=== PATIENT | female | born 1990 | race Caucasian/White ===

== ENCOUNTER 2022-12-28 16:20 | Inpatient (IN) ==
[2022-12-28] MEDS ORDERED: IOPAMIDOL 100 ML BOTTLE IV ONE (16:21)
[2022-12-28] MEDS ORDERED: AZITHROMYCIN 500 MG in DEXTROSE 5% IN WATER 250 ML IV ONE (17:31)
[2022-12-28] MEDS ORDERED: IPRATROPIUM/ALBUTEROL 3 ML AMPUL.NEB NEB ONE (17:34)
[2022-12-28] MEDS ORDERED: MAGNESIUM SULFATE 8.12 MEQ/2 ML VIAL IV ONE (17:35)
[2022-12-28 17:39] LABS: POC Calcium, Ionized 1.02 (1.16-1.32); POC Creatinine 0.7 (0.6-1.2)
[2022-12-28] MEDS ORDERED: cefTRIAXone 1 GM in DEXTROSE 5% IN WATER 50 ML IV SCH (17:45)
[2022-12-28 18:13] LABS: Hematocrit 43.1 % (34.1-44.9); Hemoglobin 14.7 g/dL (11.2-15.7); Mean Cell Volume 83.5 fL (80.0-100.0); Mean Corpuscular HGB Conc 34.1 g/dL (31.0-36.0); Mean Platelet Volume 12.2 fL (8.8-12.5); Platelet Count 403 K/mcL (140-440); RBC 5.16 M/mcL (3.59-5.38); Red Cell Distribution Width 13.5 % (11.5-14.5); WBC 17.4 K/mcL (4.5-11.0)
[2022-12-28 18:32] LABS: Creatine Kinase 64 U/L (24-170)
[2022-12-28] MEDS ORDERED: ACETAMINOPHEN 500 MG TABLET PO ONE (18:35)
[2022-12-28 19:08] LABS: Basophils % (Manual) 1 % (0-2); Eosinophils % (Manual) 2 % (0-7); Lymphocytes % 16 % (15-49); Monocytes % (Manual) 4 % (1-12); Platelet Estimate NORMAL (Normal); RBC Morphology NORMAL (Normal); Segmented Neutrophils % 77 % (38-78)
[2022-12-28] MEDS ORDERED: ALBUTEROL SULFATE 2.5 MG/3 ML NEBULIZER NEB ONE (19:30)
[2022-12-28] MEDS ORDERED: methylPREDNISolone SOD SUCC 125 MG/2 ML VIAL IV ONE (19:35)
[2022-12-28] MEDS ORDERED: BUDESONIDE 0.5 MG/2 ML AMPUL.NEB NEB ONE (19:48)
[2022-12-28 19:54] LABS: HCG,Serum Negative
[2022-12-28] MEDS ORDERED: ALBUTEROL SULFATE 2.5 MG/3 ML NEBULIZER ONE (22:20)
[2022-12-28] MEDS ORDERED: 0.9 % SODIUM CHLORIDE 1,000 ML IV SCH (23:14)
[2022-12-28] MEDS ORDERED: MAGNESIUM SULFATE 2 GM/50 ML BAG IV PRN (23:14)
[2022-12-28] MEDS ORDERED: ONDANSETRON 4 MG/2 ML VIAL IV PRN (23:14)
[2022-12-28] MEDS ORDERED: POTASSIUM CHLORIDE 20 MEQ TABLET PO PRN ×2 (23:14)
[2022-12-28] MEDS ORDERED: AZITHROMYCIN 500 MG in DEXTROSE 5% IN WATER 250 ML IV SCH (23:14)
[2022-12-28] MEDS ORDERED: IPRATROPIUM/ALBUTEROL 3 ML AMPUL.NEB NEB PRN (23:14)
[2022-12-28] MEDS ORDERED: POTASSIUM CHLORIDE 40 MEQ in DEXTROSE 5% IN WATER 500 ML IV PRN (23:14)
[2022-12-28] MEDS ORDERED: POLYETHYLENE GLYCOL 3350 17 GM PACKET PO PRN (23:14)
[2022-12-28] MEDS ORDERED: cefTRIAXone 1 GM VIAL IV SCH (23:14)
[2022-12-28] MEDS ORDERED: POTASSIUM CHLORIDE 20 MEQ TABLET PO ONE ×2 (23:14→23:21)
[2022-12-28] MEDS: IPRATROPIUM/ALBUTEROL 3 ML AMPUL.NEB NEB SCH (23:17)
[2022-12-29] MEDS: methylPREDNISolone SOD SUCC 125 MG/2 ML VIAL IV SCH ×4 (01:45→22:07)
[2022-12-29] MEDS ORDERED: IPRATROPIUM/ALBUTEROL 3 ML AMPUL.NEB NEB ONE (02:13)
[2022-12-29] MEDS: IPRATROPIUM/ALBUTEROL 3 ML AMPUL.NEB NEB SCH ×6 (02:18→22:59)
[2022-12-29] MEDS ORDERED: HYDROmorphone 0.5 MG/0.5 ML SYRINGE ONE ×2 (04:37→07:05)
[2022-12-29] MEDS: HYDROmorphone 0.5 MG/0.5 ML SYRINGE IV PRN ×7 (04:40→21:46)
[2022-12-29 04:44] LABS: Basophils # (Auto) 0.02 K/mcL (0.00-0.30); Basophils % (Auto) 0.2 % (0.0-2.0); Eosinophils # (Auto) 0 K/mcL (0.00-0.70); Eosinophils % (Auto) 0 % (0.0-7.0); Hematocrit 41.4 % (34.1-44.9); Hemoglobin 13.9 g/dL (11.2-15.7); Lymphocytes # (Auto) 0.91 K/mcL (1.50-4.80); Mean Cell Volume 85.4 fL (80.0-100.0); Mean Corpuscular HGB Conc 33.6 g/dL (31.0-36.0); Mean Platelet Volume 11.8 fL (8.8-12.5); Monocytes # (Auto) 0.26 K/mcL (0.10-0.90); Neutrophils % (Auto) 90.1 % (38.0-78.0); Platelet Count 374 K/mcL (140-440); RBC 4.85 M/mcL (3.59-5.38); Red Cell Distribution Width 13.7 % (11.5-14.5); WBC 13.1 K/mcL (4.5-11.0)
[2022-12-29 05:12] LABS: ALT/SGPT 15 U/L (<40); AST/SGOT 17 U/L (<32); Albumin 3.1 gm/dL (3.2-5.2); Albumin/Globulin Ratio 0.7 (1.0-2.3); Alkaline Phosphatase 89 U/L (39-117); Bilirubin,Direct < 0.2 mg/dL (0-0.3); Bilirubin,Total 0.3 mg/dL (0.1-1.0); Blood Urea Nitrogen 6 mg/dL (6-20); Calcium 9.2 mg/dL (8.6-10.4); Carbon Dioxide 27 mmol/L (22-30); Chloride 90 mmol/L (96-108); Globulin 4.4 gm/dL (2.2-3.7); Glomerular Filtration Rate 114; Glucose 167 mg/dL (70-105); Lactate Dehydrogenase 255 U/L (135-225); Phosphorous 3.3 mg/dL (2.5-4.5); Triglycerides 84 mg/dL (<150); Uric Acid 5.7 mg/dL (2.5-8.0)
[2022-12-29] MEDS ORDERED: POTASSIUM CHLORIDE 20 MEQ TABLET PO ONE (05:30)
[2022-12-29] MEDS ORDERED: POTASSIUM CHLORIDE 20 MEQ/10 ML VIAL IV ONE (05:31)
[2022-12-29] MEDS ORDERED: methylPREDNISolone SOD SUCC 125 MG/2 ML VIAL ONE (05:31)
[2022-12-29] MEDS ORDERED: ALBUTEROL SULFATE 2.5 MG/3 ML NEBULIZER ONE (06:25)
[2022-12-29] MEDS: BUDESONIDE 0.5 MG/2 ML AMPUL.NEB NEB SCH ×2 (06:37→22:59)
[2022-12-29] MEDS ORDERED: LIDOCAINE 5% OINT TUBE 35GM TOPICAL PRN (07:23)
[2022-12-29] MEDS: OMEPRAZOLE 20 MG CAPSULE PO SCH (10:07)
[2022-12-29] MEDS: ESCITALOPRAM 20 MG TABLET PO SCH (10:07)
[2022-12-29] MEDS: levETIRAcetam 500 MG TABLET PO SCH ×2 (10:07→21:24)
[2022-12-29] MEDS: clonazePAM 1 MG TABLET PO SCH ×2 (10:07→21:25)
[2022-12-29] MEDS: cefTRIAXone 1 GM VIAL IV SCH (10:08)
[2022-12-29] MEDS: ENOXAPARIN 40 MG/0.4 ML SYRINGE SQ SCH (10:08)
[2022-12-29] MEDS: FLUTICASONE PROPION SALMETEROL INH SCH ×2 (10:53→21:25)
[2022-12-29] MEDS: NICOTINE 21 MG PATCH TOPICAL SCH (10:53)
[2022-12-29] MEDS: AZITHROMYCIN 500 MG in DEXTROSE 5% IN WATER 250 ML IV SCH (11:36)
[2022-12-29] MEDS: SENNOSIDES 1 TABLET PO PRN (21:22)
[2022-12-29] MEDS: NORTRIPTYLINE 25 MG CAPSULE PO SCH (21:22)
[2022-12-29] MEDS: cloNIDine HCL 0.1 MG TABLET PO SCH (21:23)
[2022-12-29] MEDS: ZOLPIDEM 5 MG TABLET PO PRN (21:46)
[2022-12-30] MEDS: IPRATROPIUM/ALBUTEROL 3 ML AMPUL.NEB NEB SCH ×5 (03:09→18:19)
[2022-12-30] MEDS: methylPREDNISolone SOD SUCC 125 MG/2 ML VIAL IV SCH (05:21)
[2022-12-30] MEDS: BUDESONIDE 0.5 MG/2 ML AMPUL.NEB NEB SCH ×2 (07:10→22:09)
[2022-12-30] MEDS: HYDROmorphone 0.5 MG/0.5 ML SYRINGE IV PRN ×4 (07:47→21:10)
[2022-12-30] MEDS: OMEPRAZOLE 20 MG CAPSULE PO SCH (07:47)
[2022-12-30 08:14] LABS: Basophils # (Auto) 0.03 K/mcL (0.00-0.30); Basophils % (Auto) 0.2 % (0.0-2.0); Eosinophils # (Auto) 0 K/mcL (0.00-0.70); Eosinophils % (Auto) 0 % (0.0-7.0); Hematocrit 41.6 % (34.1-44.9); Hemoglobin 13.4 g/dL (11.2-15.7); Lymphocytes # (Auto) 1.44 K/mcL (1.50-4.80); Lymphocytes % (Auto) 8.7 % (15.5-49.0); Mean Cell Volume 89.3 fL (80.0-100.0); Mean Corpuscular HGB Conc 32.2 g/dL (31.0-36.0); Mean Platelet Volume 12.1 fL (8.8-12.5); Monocytes # (Auto) 0.38 K/mcL (0.10-0.90); Monocytes % (Auto) 2.3 % (1.0-12.0); Neutrophils % (Auto) 88.1 % (38.0-78.0); Platelet Count 391 K/mcL (140-440); RBC 4.66 M/mcL (3.59-5.38); Red Cell Distribution Width 14.6 % (11.5-14.5); WBC 16.6 K/mcL (4.5-11.0)
[2022-12-30 08:48] LABS: ALT/SGPT 11 U/L (<40); AST/SGOT 13 U/L (<32); Albumin 2.9 gm/dL (3.2-5.2); Albumin/Globulin Ratio 0.7 (1.0-2.3); Alkaline Phosphatase 77 U/L (39-117); Bilirubin,Direct < 0.2 mg/dL (0-0.3); Bilirubin,Total 0.2 mg/dL (0.1-1.0); Blood Urea Nitrogen 10 mg/dL (6-20); Calcium 9.3 mg/dL (8.6-10.4); Carbon Dioxide 28 mmol/L (22-30); Chloride 96 mmol/L (96-108); Globulin 4.1 gm/dL (2.2-3.7); Glomerular Filtration Rate 120; Glucose 128 mg/dL (70-105); Lactate Dehydrogenase 205 U/L (135-225); Phosphorous 3.9 mg/dL (2.5-4.5); Triglycerides 91 mg/dL (<150); Uric Acid 4.7 mg/dL (2.5-8.0)
[2022-12-30] MEDS: levETIRAcetam 500 MG TABLET PO SCH ×2 (10:06→20:12)
[2022-12-30] MEDS: ESCITALOPRAM 20 MG TABLET PO SCH (10:06)
[2022-12-30] MEDS: ENOXAPARIN 40 MG/0.4 ML SYRINGE SQ SCH (10:06)
[2022-12-30] MEDS: FLUTICASONE PROPION SALMETEROL INH SCH ×2 (10:06→20:15)
[2022-12-30] MEDS: cefTRIAXone 1 GM VIAL IV SCH (10:06)
[2022-12-30] MEDS: clonazePAM 1 MG TABLET PO SCH ×2 (10:06→20:12)
[2022-12-30] MEDS: AZITHROMYCIN 500 MG in DEXTROSE 5% IN WATER 250 ML IV SCH (10:07)
[2022-12-30] MEDS: NICOTINE 21 MG PATCH TOPICAL SCH (10:22)
[2022-12-30] MEDS: methylPREDNISolone SOD SUCC 40 MG/ML VIAL IV SCH ×2 (14:10→21:10)
[2022-12-30] MEDS: cloNIDine HCL 0.1 MG TABLET PO SCH (20:11)
[2022-12-30] MEDS: ZOLPIDEM 5 MG TABLET PO PRN (20:11)
[2022-12-30] MEDS: ACETAMINOPHEN W/CODEINE #3 1 TABLET PO PRN (20:12)
[2022-12-30] MEDS: NORTRIPTYLINE 25 MG CAPSULE PO SCH (20:14)
[2022-12-31] MEDS: IPRATROPIUM/ALBUTEROL 3 ML AMPUL.NEB NEB SCH ×4 (00:09→21:09)
[2022-12-31] MEDS: methylPREDNISolone SOD SUCC 40 MG/ML VIAL IV SCH ×2 (05:10→21:01)
[2022-12-31] MEDS: ACETAMINOPHEN W/CODEINE #3 1 TABLET PO PRN ×3 (05:10→20:07)
[2022-12-31 06:26] LABS: Basophils # (Auto) 0.02 K/mcL (0.00-0.30); Basophils % (Auto) 0.1 % (0.0-2.0); Eosinophils # (Auto) 0 K/mcL (0.00-0.70); Eosinophils % (Auto) 0 % (0.0-7.0); Hematocrit 40.6 % (34.1-44.9); Hemoglobin 12.9 g/dL (11.2-15.7); Lymphocytes % (Auto) 17.8 % (15.5-49.0); Mean Cell Volume 89.8 fL (80.0-100.0); Mean Corpuscular HGB Conc 31.8 g/dL (31.0-36.0); Mean Platelet Volume 11.7 fL (8.8-12.5); Monocytes # (Auto) 0.53 K/mcL (0.10-0.90); Monocytes % (Auto) 3.5 % (1.0-12.0); Neutrophils % (Auto) 77.4 % (38.0-78.0); Platelet Count 463 K/mcL (140-440); RBC 4.52 M/mcL (3.59-5.38); Red Cell Distribution Width 14.6 % (11.5-14.5); WBC 15.1 K/mcL (4.5-11.0)
[2022-12-31 06:47] LABS: ALT/SGPT 14 U/L (<40); AST/SGOT 12 U/L (<32); Albumin 2.9 gm/dL (3.2-5.2); Albumin/Globulin Ratio 0.8 (1.0-2.3); Alkaline Phosphatase 69 U/L (39-117); Bilirubin,Direct < 0.2 mg/dL (0-0.3); Bilirubin,Total 0.2 mg/dL (0.1-1.0); Blood Urea Nitrogen 14 mg/dL (6-20); Calcium 9.2 mg/dL (8.6-10.4); Carbon Dioxide 31 mmol/L (22-30); Chloride 96 mmol/L (96-108); Erythrocyte Sedimentation Rate 76 mm/hr (0-20); Globulin 3.8 gm/dL (2.2-3.7); Glomerular Filtration Rate 120; Glucose 113 mg/dL (70-105); Lactate Dehydrogenase 171 U/L (135-225); Phosphorous 4.3 mg/dL (2.5-4.5); Triglycerides 108 mg/dL (<150); Uric Acid 4.5 mg/dL (2.5-8.0)
[2022-12-31] MEDS: OMEPRAZOLE 20 MG CAPSULE PO SCH (07:23)
[2022-12-31] MEDS: BUDESONIDE 0.5 MG/2 ML AMPUL.NEB NEB SCH ×2 (08:24→21:09)
[2022-12-31] MEDS: ENOXAPARIN 40 MG/0.4 ML SYRINGE SQ SCH (08:47)
[2022-12-31] MEDS: cefTRIAXone 1 GM VIAL IV SCH (08:47)
[2022-12-31] MEDS: levETIRAcetam 500 MG TABLET PO SCH ×2 (08:49→20:08)
[2022-12-31] MEDS: ESCITALOPRAM 20 MG TABLET PO SCH (08:49)
[2022-12-31] MEDS: clonazePAM 1 MG TABLET PO SCH ×2 (08:50→20:07)
[2022-12-31] MEDS: FLUTICASONE PROPION SALMETEROL INH SCH ×2 (08:53→20:10)
[2022-12-31] MEDS: HYDROmorphone 0.5 MG/0.5 ML SYRINGE IV PRN ×3 (09:58→21:00)
[2022-12-31] MEDS: NICOTINE 21 MG PATCH TOPICAL SCH (09:59)
[2022-12-31] MEDS: tiZANidine 4 MG TABLET PO PRN (18:00)
[2022-12-31] MEDS: cloNIDine HCL 0.1 MG TABLET PO SCH (20:08)
[2022-12-31] MEDS: NORTRIPTYLINE 25 MG CAPSULE PO SCH (20:09)
[2022-12-31] MEDS: ZOLPIDEM 5 MG TABLET PO PRN (21:01)
[2023-01-01] MEDS: ACETAMINOPHEN W/CODEINE #3 1 TABLET PO PRN ×3 (00:06→20:55)
[2023-01-01] MEDS: tiZANidine 4 MG TABLET PO PRN ×2 (05:16→19:01)
[2023-01-01 06:07] LABS: Basophils # (Auto) 0.02 K/mcL (0.00-0.30); Basophils % (Auto) 0.2 % (0.0-2.0); Eosinophils # (Auto) 0 K/mcL (0.00-0.70); Eosinophils % (Auto) 0 % (0.0-7.0); Lymphocytes # (Auto) 2.63 K/mcL (1.50-4.80); Lymphocytes % (Auto) 22.8 % (15.5-49.0); Mean Cell Volume 92.5 fL (80.0-100.0); Mean Platelet Volume 10.9 fL (8.8-12.5); Monocytes # (Auto) 0.54 K/mcL (0.10-0.90); Monocytes % (Auto) 4.7 % (1.0-12.0); Neutrophils % (Auto) 70.6 % (38.0-78.0); Platelet Count 400 K/mcL (140-440); RBC 4.54 M/mcL (3.59-5.38); Red Cell Distribution Width 14.6 % (11.5-14.5); WBC 11.5 K/mcL (4.5-11.0)
[2023-01-01 06:27] LABS: ALT/SGPT 14 U/L (<40); AST/SGOT 14 U/L (<32); Albumin 2.8 gm/dL (3.2-5.2); Albumin/Globulin Ratio 0.8 (1.0-2.3); Alkaline Phosphatase 69 U/L (39-117); Bilirubin,Direct < 0.2 mg/dL (0-0.3); Bilirubin,Total 0.2 mg/dL (0.1-1.0); Blood Urea Nitrogen 14 mg/dL (6-20); Carbon Dioxide 29 mmol/L (22-30); Chloride 96 mmol/L (96-108); Globulin 3.7 gm/dL (2.2-3.7); Glomerular Filtration Rate 114; Glucose 116 mg/dL (70-105); Lactate Dehydrogenase 163 U/L (135-225); Phosphorous 4.7 mg/dL (2.5-4.5); Triglycerides 103 mg/dL (<150)
[2023-01-01] MEDS: BUDESONIDE 0.5 MG/2 ML AMPUL.NEB NEB SCH ×2 (07:17→21:43)
[2023-01-01] MEDS: ACETAMINOPHEN 325 MG TABLET PO PRN (07:17)
[2023-01-01] MEDS: OMEPRAZOLE 20 MG CAPSULE PO SCH (07:18)
[2023-01-01] MEDS: IPRATROPIUM/ALBUTEROL 3 ML AMPUL.NEB NEB SCH ×3 (07:22→21:43)
[2023-01-01] MEDS: clonazePAM 1 MG TABLET PO SCH ×2 (08:29→20:57)
[2023-01-01] MEDS: cefTRIAXone 1 GM VIAL IV SCH (08:29)
[2023-01-01] MEDS: methylPREDNISolone SOD SUCC 40 MG/ML VIAL IV SCH (08:29)
[2023-01-01] MEDS: ESCITALOPRAM 20 MG TABLET PO SCH (08:30)
[2023-01-01] MEDS: levETIRAcetam 500 MG TABLET PO SCH ×2 (08:30→20:53)
[2023-01-01] MEDS: NICOTINE 21 MG PATCH TOPICAL SCH (08:32)
[2023-01-01] MEDS: FLUTICASONE PROPION SALMETEROL INH SCH ×2 (08:32→20:57)
[2023-01-01] MEDS: ENOXAPARIN 40 MG/0.4 ML SYRINGE SQ SCH (08:32)
[2023-01-01] MEDS: hydrOXYzine 25 MG TABLET PO PRN ×2 (12:19→19:01)
[2023-01-01] MEDS: cloNIDine HCL 0.1 MG TABLET PO SCH (20:53)
[2023-01-01] MEDS: SENNOSIDES 1 TABLET PO PRN (20:55)
[2023-01-01] MEDS: ZOLPIDEM 5 MG TABLET PO PRN (20:55)
[2023-01-01] MEDS: NORTRIPTYLINE 25 MG CAPSULE PO SCH (20:56)
[2023-01-02] MEDS: IPRATROPIUM/ALBUTEROL 3 ML AMPUL.NEB NEB SCH ×2 (06:26→08:39)
[2023-01-02] MEDS: OMEPRAZOLE 20 MG CAPSULE PO SCH (06:44)
[2023-01-02] MEDS ORDERED: predniSONE 20 MG TABLET PO SCH (08:00)
[2023-01-02] MEDS: ENOXAPARIN 40 MG/0.4 ML SYRINGE SQ SCH (08:11)
[2023-01-02] MEDS: levETIRAcetam 500 MG TABLET PO SCH (08:11)
[2023-01-02] MEDS: ESCITALOPRAM 20 MG TABLET PO SCH (08:11)
[2023-01-02] MEDS: FLUTICASONE PROPION SALMETEROL INH SCH (08:12)
[2023-01-02] MEDS: clonazePAM 1 MG TABLET PO SCH (08:12)
[2023-01-02] MEDS: ACETAMINOPHEN 325 MG TABLET PO PRN (08:12)
[2023-01-02] MEDS: NICOTINE 21 MG PATCH TOPICAL SCH (08:34)
[2023-01-02] MEDS: cefTRIAXone 1 GM VIAL IV SCH (08:34)
[2023-01-02] MEDS: BUDESONIDE 0.5 MG/2 ML AMPUL.NEB NEB SCH (08:38)
[2023-01-02] MEDS: ACETAMINOPHEN W/CODEINE #3 1 TABLET PO PRN (09:21)
[2023-01-07 15:16] LABS: M. Pneumoniae IGG 1.86
== END 2023-01-02 11:15 | disposition home or self-care (01) | DRG 193 ==
LOC: ED 16:20 → ICU 22:55
PROVIDERS: ADMIT Internal Medicine; ATTEND Internal Medicine